=== PATIENT | male | born 2000 | race American Indian/Alaskan Native ===

== ENCOUNTER 2020-01-26 13:27 | Emergency (ER) | payer SELFPAY ==
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
== END 2020-01-26 16:37 | disposition home or self-care (01) ==
LOC: ED 13:27
DX: S39.012A Strain of muscle, fascia and tendon of lower back, initial encounter (principal); Z79.899 Other long term (current) drug therapy; Z88.0 Allergy status to penicillin; V49.49XA Driver injured in collision with other motor vehicles in traffic accident, initial encounter; Y92.410 Unspecified street and highway as the place of occurrence of the external cause; Y93.89 Activity, other specified; Y99.8 Other external cause status
CPT/HCPCS: 99282

== ENCOUNTER 2020-11-03 10:15 | Emergency (ER) | payer SELFPAY ==
[2020-11-03 11:25] VITALS: BP 119/49
--- NOTE | 2020-11-03 12:39 | Emergency Department Report ---
Chief Complaint: Urogenital-Male Stated Complaint: DISCHARGE X 1 DAY Time Seen by Provider: 11/03/20 12:37 - HPI History of Present Illness: Patient is a 20-year-old male presents emergency room complaints of white penile discharge that began yesterday. He states he is also been experiencing some dysuria. He reports he was sexually active 2 weeks ago. He denies any fever, nausea, vomiting, diarrhea, urinary retention, hematuria, abdominal pain, pain or swelling the testicles. No past medical history. Allergy to penicillin. Vitals are normal On exam: Non toxic appearing, no acute distress atraumatic, normocephalic normal appearance of the eyes, EOMI, no periorbital edema or ecchymosis moist mucus membranes No respiratory distress, no accessory muscle use A&O x4, normal gait Patient is presenting with symptoms which appear most likely consistent with male STD This hospital facility policy does not test or treat for uncomplicated male STDs Patient given the appropriate resources Discuss strict return precautions Medical screen examination performed and there is no threat to life or limb at this time - Exam Vital Signs: Vital Signs 11/03/20 11/03/20 11:22 11:24 Temperature 98.8 F Pulse Rate 62 Respiratory 20 Rate Blood Pressure 119/49 O2 Sat by Pulse 100 Oximetry MSE screening note: Focused history and physical exam performed. ED Disposition for MSE Clinical Impression: Penile discharge, Dysuria, Concern about STD in male without diagnosis Disposition: 01 HOME / SELF CARE / HOMELESS Is pt being admited?: No Does the pt Need Aspirin: No Condition: Stable Instructions: Safe Sex Additional Instructions: please follow up with clinic or health department for full STD panel. have any partner tested and treated as well. avoid sexual intercourse. return to the emergency room for any new or worsening symptoms. [employer] Address: [address] [place] [id number] Referrals: [facility] Depart [Outside] - 2-3 Days Time of Disposition: 12:38 Print Language: AZERI
== END 2020-11-03 12:43 | disposition home or self-care (01) ==
LOC: ED 10:15
DX: R36.9 Urethral discharge, unspecified (principal); R30.0 Dysuria; Z20.2 Contact with and (suspected) exposure to infections with a predominantly sexual mode of transmission
CPT/HCPCS: 99281